=== PATIENT | female | born 1955 | race Caucasian/White ===

== ENCOUNTER 2023-02-06 12:00 | Inpatient (IN) | payer BC, OTHER ==
[2023-02-06] MEDS ORDERED: Diltiazem 25 MG/5 ML SDV IVPUSH ONE ×2 (12:06→13:40)
[2023-02-06 12:14] LABS: BASOPHILS ABSOLUTE AUTO 0.04 10^3/uL (0.00-0.50); BASOPHILS PERCENT AUTO 0.5 % (0-1); EOSINOPHILS ABSOLUTE AUTO 0.05 10^3/uL (0.00-1.50); EOSINOPHILS PERCENT AUTO 0.7 % (0-6); HEMATOCRIT 40.2 % (37.0-47.0); HEMOGLOBIN 12.5 g/dL (12.0-16.0); IMMATURE GRAN ABSOLUTE AUTO 0.01 10^3/uL (0.00-0.49); IMMATURE GRAN PERCENT AUTO 0.1 % (0.0-4.9); LYMPHOCYTES PERCENT AUTO 19.8 % (24-44); MEAN CORPUSCULAR HEMOGLOBIN 27.5 pg (27.0-32.0); MEAN CORPUSCULAR HGB CONC 31.1 g/dL (32.0-36.0); MEAN CORPUSCULAR VOLUME 88.5 fL (83.0-97.0); MONOCYTES ABSOLUTE AUTO 0.49 10^3/uL (0.00-1.50); MONOCYTES PERCENT AUTO 6.5 % (0-10); NEUTROPHILS ABSOLUTE AUTO 5.47 x10^3/uL (1.80-8.00); NEUTROPHILS PERCENT AUTO 72.4 % (41-71); PLATELET COUNT,PLT 216 10^3/uL (150-400); RED BLOOD CELL COUNT 4.54 x10^6/uL (4.00-5.50); WHITE BLOOD CELL COUNT,WBC 7.6 10^3/uL (4.0-11.0)
[2023-02-06] MEDS ORDERED: Sodium Chloride 0.9% 500 ML IV SCH (12:15)
[2023-02-06] MEDS: Diltiazem 100 MG in Sodium Chloride 0.9% 100 ML IV SCH ×2 (12:28→19:11)
[2023-02-06] MEDS ORDERED: Apixaban 5 MG Tab PO ONE (12:31)
[2023-02-06 12:39] LABS: ALBUMIN 4.1 g/dL (3.4-5.0); CALCIUM 10.1 mg/dL (8.4-10.1); CREATININE 1.2 mg/dL (0.6-1.0); EST CRCL DRUG DOSING (CG) 38.15 mL/min; MAGNESIUM 1.9 mg/dL (1.8-2.4); POTASSIUM,K 3.7 mEq/L (3.5-5.0); PROTEIN TOTAL,TP 7.5 g/dL (6.4-8.2); TSH ULTRASENSITIVE 3.38 uIU/mL (0.36-5.60)
[2023-02-06] MEDS ORDERED: Ondansetron 4 MG Tab.DIS PO PRN (13:55)
[2023-02-06] MEDS ORDERED: Ondansetron 4 MG/2 ML SDV IV PRN (13:55)
[2023-02-06] MEDS ORDERED: Acetaminophen 325 MG Tab PO PRN (13:55)
[2023-02-06] MEDS ORDERED: Polyethylene Glycol 3350 Powder 17 GM Packet PO PRN (13:55)
[2023-02-06] MEDS ORDERED: Docusate Sodium 100 MG Cap PO PRN (13:55)
[2023-02-06] MEDS ORDERED: Sodium Chloride 0.9% 1,000 ML IV SCH (15:30)
[2023-02-06] MEDS: Apixaban 5 MG Tab PO SCH (19:24)
[2023-02-06] MEDS ORDERED: Diltiazem 120 MG Cap.CD PO ONE (20:42)
[2023-02-07] MEDS: Pantoprazole 40 MG Tab.CR PO SCH (06:01)
[2023-02-07 06:28] LABS: APPEARANCE,URINE SLIGHTLY CLOUDY (CLEAR); BILIRUBIN,URINE SMALL (NEGATIVE); COLOR,URINE YELLOW (YELLOW); GLUCOSE,URINE NEGATIVE (NEGATIVE); KETONES,URINE NEGATIVE (NEGATIVE); LEUKOCYTE ESTERASE,URINE TRACE (NEGATIVE); NITRITE,URINE NEGATIVE (NEGATIVE); OCCULT BLOOD,URINE NEGATIVE (NEGATIVE); PH,URINE 5.5 (4.5-8.0); PROTEIN,URINE 100 mg/dL (NEGATIVE); UROBILINOGEN,URINE 0.2 EU/dL (0.2-1.0)
[2023-02-07 06:37] LABS: BACTERIA,URINE NOT SEEN /HPF (NOT SEEN); EPITHELIAL CELLS,URINE OCCASIONAL /HPF (NOT SEEN); MUCUS,URINE OCCASIONAL /HPF (NOT SEEN); RBC,URINE NOT SEEN /HPF (0-5); WBC,URINE 0-5 /HPF (0-5)
[2023-02-07 07:20] LABS: BASOPHILS ABSOLUTE AUTO 0.03 10^3/uL (0.00-0.50); BASOPHILS PERCENT AUTO 0.6 % (0-1); EOSINOPHILS ABSOLUTE AUTO 0.17 10^3/uL (0.00-1.50); EOSINOPHILS PERCENT AUTO 3.2 % (0-6); HEMATOCRIT 36.4 % (37.0-47.0); HEMOGLOBIN 11.4 g/dL (12.0-16.0); IMMATURE GRAN ABSOLUTE AUTO 0.01 10^3/uL (0.00-0.49); IMMATURE GRAN PERCENT AUTO 0.2 % (0.0-4.9); LYMPHOCYTES ABSOLUTE AUTO 1.38 10^3/uL (0.60-5.00); LYMPHOCYTES PERCENT AUTO 25.6 % (24-44); MEAN CORPUSCULAR HEMOGLOBIN 27.9 pg (27.0-32.0); MEAN CORPUSCULAR HGB CONC 31.3 g/dL (32.0-36.0); MONOCYTES ABSOLUTE AUTO 0.47 10^3/uL (0.00-1.50); MONOCYTES PERCENT AUTO 8.7 % (0-10); NEUTROPHILS ABSOLUTE AUTO 3.33 x10^3/uL (1.80-8.00); NEUTROPHILS PERCENT AUTO 61.7 % (41-71); PLATELET COUNT,PLT 189 10^3/uL (150-400); RED BLOOD CELL COUNT 4.09 x10^6/uL (4.00-5.50); WHITE BLOOD CELL COUNT,WBC 5.4 10^3/uL (4.0-11.0)
[2023-02-07] MEDS ORDERED: Diltiazem 25 MG/5 ML SDV IVPUSH ONE (07:29)
[2023-02-07 07:34] LABS: EST CRCL DRUG DOSING (CG) 45.78 mL/min; POTASSIUM,K 3.8 mEq/L (3.5-5.0)
[2023-02-07] MEDS: Diltiazem 100 MG in Sodium Chloride 0.9% 100 ML IV SCH ×2 (07:54→16:52)
[2023-02-07] MEDS: Apixaban 5 MG Tab PO SCH ×2 (07:55→19:10)
[2023-02-07] MEDS: Multivitamin Tab PO SCH (07:55)
[2023-02-07] MEDS ORDERED: Diltiazem 120 MG Cap.CD PO SCH (08:00)
[2023-02-07] MEDS: Diltiazem IR 30 MG Tab PO SCH (19:52)
[2023-02-08] MEDS: Diltiazem IR 30 MG Tab PO SCH ×4 (01:26→19:26)
[2023-02-08] MEDS: Pantoprazole 40 MG Tab.CR PO SCH (06:41)
[2023-02-08] MEDS: Apixaban 5 MG Tab PO SCH ×2 (07:25→19:26)
[2023-02-08] MEDS: Multivitamin Tab PO SCH (07:25)
[2023-02-08 07:57] LABS: BASOPHILS ABSOLUTE AUTO 0.02 10^3/uL (0.00-0.50); BASOPHILS PERCENT AUTO 0.3 % (0-1); EOSINOPHILS ABSOLUTE AUTO 0.13 10^3/uL (0.00-1.50); EOSINOPHILS PERCENT AUTO 2.1 % (0-6); HEMATOCRIT 38.4 % (37.0-47.0); HEMOGLOBIN 11.9 g/dL (12.0-16.0); IMMATURE GRAN ABSOLUTE AUTO 0.01 10^3/uL (0.00-0.49); IMMATURE GRAN PERCENT AUTO 0.2 % (0.0-4.9); LYMPHOCYTES ABSOLUTE AUTO 1.35 10^3/uL (0.60-5.00); LYMPHOCYTES PERCENT AUTO 21.7 % (24-44); MEAN CORPUSCULAR HEMOGLOBIN 27.7 pg (27.0-32.0); MEAN CORPUSCULAR VOLUME 89.5 fL (83.0-97.0); MONOCYTES ABSOLUTE AUTO 0.47 10^3/uL (0.00-1.50); MONOCYTES PERCENT AUTO 7.5 % (0-10); NEUTROPHILS ABSOLUTE AUTO 4.25 x10^3/uL (1.80-8.00); NEUTROPHILS PERCENT AUTO 68.2 % (41-71); PLATELET COUNT,PLT 202 10^3/uL (150-400); RED BLOOD CELL COUNT 4.29 x10^6/uL (4.00-5.50); WHITE BLOOD CELL COUNT,WBC 6.2 10^3/uL (4.0-11.0)
[2023-02-08 08:05] LABS: CALCIUM 9.2 mg/dL (8.4-10.1); EST CRCL DRUG DOSING (CG) 45.78 mL/min; MAGNESIUM 1.9 mg/dL (1.8-2.4); POTASSIUM,K 4.4 mEq/L (3.5-5.0)
[2023-02-09] MEDS: Diltiazem IR 30 MG Tab PO SCH ×3 (01:25→13:30)
[2023-02-09] MEDS: Pantoprazole 40 MG Tab.CR PO SCH (06:04)
[2023-02-09] MEDS: Apixaban 5 MG Tab PO SCH (07:15)
[2023-02-09] MEDS: Multivitamin Tab PO SCH (07:15)
[2023-02-09 07:22] LABS: BASOPHILS ABSOLUTE AUTO 0.03 10^3/uL (0.00-0.50); BASOPHILS PERCENT AUTO 0.5 % (0-1); EOSINOPHILS PERCENT AUTO 3.4 % (0-6); HEMATOCRIT 39.5 % (37.0-47.0); HEMOGLOBIN 12.3 g/dL (12.0-16.0); LYMPHOCYTES ABSOLUTE AUTO 1.27 10^3/uL (0.60-5.00); LYMPHOCYTES PERCENT AUTO 21.9 % (24-44); MEAN CORPUSCULAR HEMOGLOBIN 27.6 pg (27.0-32.0); MEAN CORPUSCULAR HGB CONC 31.1 g/dL (32.0-36.0); MEAN CORPUSCULAR VOLUME 88.8 fL (83.0-97.0); MONOCYTES ABSOLUTE AUTO 0.45 10^3/uL (0.00-1.50); MONOCYTES PERCENT AUTO 7.7 % (0-10); NEUTROPHILS ABSOLUTE AUTO 3.86 x10^3/uL (1.80-8.00); NEUTROPHILS PERCENT AUTO 66.5 % (41-71); PLATELET COUNT,PLT 212 10^3/uL (150-400); RED BLOOD CELL COUNT 4.45 x10^6/uL (4.00-5.50); WHITE BLOOD CELL COUNT,WBC 5.8 10^3/uL (4.0-11.0)
[2023-02-09 07:28] LABS: CALCIUM 9.5 mg/dL (8.4-10.1); CREATININE 1.2 mg/dL (0.6-1.0); EST CRCL DRUG DOSING (CG) 38.15 mL/min; POTASSIUM,K 3.9 mEq/L (3.5-5.0)
== END 2023-02-09 17:45 | disposition home or self-care (01) | DRG 201 ==
LOC: CC.ED 12:00 → UNDOADMIN 12:43 → CC.MS 12:43
PROVIDERS: ADMIT Nurse Practitioner; ATTEND Nurse Practitioner
DX: I48.91 Unspecified atrial fibrillation (principal); K21.9 Gastro-esophageal reflux disease without esophagitis; Z11.52 Encounter for screening for COVID-19; Z79.01 Long term (current) use of anticoagulants; Z79.899 Other long term (current) drug therapy
CPT/HCPCS: 36415; 71046; 80048; 80053; 81001; 81003; 83735; 84443; 84484; 85025; 85730; 93005; 93010; 96365; 99223; 99232; 99233; 99238; 99285-25; A9270-GY; J3490; J7030; J7040; U0002